=== PATIENT | male | born 1980 | race African-American/Black ===

== ENCOUNTER 2017-11-16 18:47 | Outpatient (CLI) | END 2017-11-16 18:48 | disposition short-term general hospital (02) | LOC: AMBL 18:47 | PROVIDERS: ATTEND Internal Medicine Geriatric Medicine | DX: R56.9 Unspecified convulsions (principal); I10 Essential (primary) hypertension; M32.9 Systemic lupus erythematosus, unspecified; H54.3 Unqualified visual loss, both eyes ==